=== PATIENT | female | born 2000 | race Caucasian/White ===

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

== ENCOUNTER 2022-04-12 11:19 | Emergency (ER) | payer OTHER, SELFPAY ==
[2022-04-12 11:47] VITALS: BP 100/69; PULSE 76; RESP 20; TEMP 35.9; O2SAT 98
--- NOTE | 2022-04-12 12:41 | ED.GENADULT ---
HPI - General Adult General Chief complaint: Urogenital-Female Stated complaint: Possible UTI Time Seen by Provider: 04/12/22 12:41 Source: patient Mode of arrival: ambulatory Limitations: no limitations History of Present Illness HPI narrative: 22-year-old female patient presents to the [facility] with complaints of urinary symptoms that started yesterday. Patient states she started having burning with urination. Denies any low back pain. Denies any fevers, body aches or chills. Denies any nausea, vomiting or diarrhea. Patient states she was recently started on hormone therapy for a spot on her liver. Patient does have history of stage IV breast cancer with a lumpectomy. Related Data Home Medications Medication Instructions Recorded Confirmed tamoxifen 20 mg tablet 10 mg PO BID 11/20/21 04/12/22 copper 380 square mm intrauterine See Rx Instructions .Route .COMPLEX 04/12/22 04/12/22 device (ParaGard T 380A) escitalopram oxalate 20 mg tablet 20 mg PO DAILY 04/12/22 04/12/22 ribociclib 600 mg/day (200 mg x 3) 1 tablet PO DAILY 04/12/22 04/12/22 and letrozole 2.5 mg tablet (Kisqali Femara Co-Pack) Allergies Allergy/AdvReac Type Severity Reaction Status Date / Time No Known Allergies Allergy Verified 04/12/22 12:20 Review of Systems Review of Systems: CONSTITUTIONAL: Denies fever, chills, or sweats. EYES: Denies visual changes, redness, or discharge. ENT: Denies rhinorrhea, congestion, sore throat, or otalgia. CARDIOVASCULAR: Denies chest pain, palpitations, or edema. RESPIRATORY: Denies cough or dyspnea. GASTROINTESTINAL: Denies abdominal pain, nausea, vomiting, or diarrhea. GENITOURINARY: Positive dysuria denies hematuria. SKIN: Denies rash or itching. MUSCULOSKELETAL: Denies back pain, joint pain, or myalgia. NEUROLOGIC: Denies headache, numbness, or weakness. PSYCHIATRIC: Denies anxiety or depression. [facility] Past Medical History Medical History (Updated 04/12/22 @ 12:57 by TONY Huitron) Acne vulgaris Acute pain of right knee Healthy adult Internal hemorrhoids without complication Malignant neoplasm of upper-inner quadrant of right female breast Menometrorrhagia Secondary malignant neoplasm of bone Tonsil stone Viral URI Surgical History Surgical History History of lumpectomy of right breast Family History Family History Mother Patient's mother is in good health Father Patient's father is in good health Ahuja's sarcoma, Onset Age: 28 Grandparent Malignant neoplasm of prostate Paternal Grandfather Grandparent Breast cancer Paternal Grandmother Social History Social History Smoking status: Never smoker Second hand tobacco smoke exposure: No Alcohol intake: never Substance use: current Other substance usage details: seldom; socially Gender identity (if verbalized by the patient): Female Spiritual care concerns: No Comments At the time of my signature I agree with nursing past medical history, surgical, social, and family history. There is no relevant family history pertinent to the presenting complaint. Exam Narrative: GENERAL: Well-appearing, well-nourished, and in no acute distress. HEAD: Normocephalic, atraumatic. EYES: PERRLA and EOMI. ENT: Nares clear, no rhinorrhea or epistaxis. Mucous membranes moist. NECK: Supple. No lymphadenopathy CHEST: Clear to auscultation. No respiratory distress. HEART: Regular rate and rhythm. No murmur heard. Normal peripheral pulses. ABDOMEN: Soft, nontender, nondistended, normal active bowel sounds. no CVA tenderness on percussion. EXTREMITIES: Normal range of motion. No edema. SKIN: Warm, dry, no rash. NEURO: No focal deficits. Alert and oriented x3. Course Course Level of Care: Express Care Visit Vital Signs Vital signs: Vital Sig
== END 2022-04-12 12:57 | disposition home or self-care (01) ==
PROVIDERS: Emergency Provider Nurse Practitioner Family; PCP Family Medicine
DX: N39.0 Urinary tract infection, site not specified (principal); Z85.3 Personal history of malignant neoplasm of breast; Z85.830 Personal history of malignant neoplasm of bone
CPT/HCPCS: 81003; 87077; 87086; 87186; 99213; G0463

== ENCOUNTER 2022-04-30 15:29 | Outpatient (CLI) | payer BC, SELFPAY ==
[2022-04-30 15:51] LABS: Add Urine Microscopic? NO; Appearance Urine Clear (Clear); Bilirubin Urine Negative (Negative); Blood Urine Negative (Negative); Color Urine Yellow (Yellow); Glucose Urine UA Negative (Negative); Ketones Urine Negative (Negative); Leukocyte Esterase Ur Negative LEU/UL (Negative); Nitrate Urine Negative (Negative); Protein Urine Negative (Negative); Urobilinogen Urine 0.2 mg/dL (<2.0)
== END 2022-04-30 15:30 | disposition home or self-care (01) ==
LOC: ANHLAB 15:31
PROVIDERS: PCP Family Medicine; Visit Provider Physician Assistant
DX: R30.0 Dysuria (principal)
CPT/HCPCS: 81003

== ENCOUNTER 2024-12-11 14:16 | Outpatient (CLI) | payer BC, SELFPAY ==
--- NOTE | ~2024-12-11 | DEXA_ITS ---
Bone Density Report Name: WANDA ROWLAND Age: 24 Sex: Female Ethnicity: White Date of : 2000 Indication: cancer; Referring Provider: DERRICK JONES Study: Bone densitometry was performed. Exam Date: December 11, 2024 Accession number: [id number] Bone Density: Region BMD T-score Z-score Classification AP Spine(L1-L4) 0.906 -1.2 Femoral Neck (Left) 0.904 0.5 Total Hip (Left) 0.990 0.4 Femoral Neck (Right) 0.914 0.6 Total Hip (Right) 1.027 0.7 Total Hip Mean 1.009 0.6 World Health Organization criteria for BMD impression classify patients as: Normal (T-score at or above -1.0), Osteopenia (T-score between -1.0 and -2.5), or Osteoporosis (T-score at or below -2.5). 10-year Fracture Risk: FRAX not reported because: Premenopausal woman Clinical Information Provided by Patient: Has used the following medications: Vitamin D, Calcium Has the following medical conditions: Cancer Patient maximum height was 66.0 No regular weight bearing exercise Drinks caffeinated beverages Onset of menses at age 11 Premenopausal Number of children 0 Missed period for more than 6 months in a row Impression: The patient's bone mass is within expected range for age, gender and ethnicity. Discussion: BONE DENSITY IS WITHIN EXPECTED LIMITS FOR AGE, SEX AND RACE. Bone density is within expected limits for age, sex and race at all sites measured. The patient should follow a healthful lifestyle (good nutrition with adequate calcium and vitamin D, and appropriate weight-bearing exercise). Follow-Up: Consider repeating this study in 5 years or sooner if there is some new clinical indication. Reported by: SANDHYA on 12/11/2024 3:07:00 PM. Reviewed, dictated and finalized at location A.
--- OUTSIDE RECORDS SUMMARY | 2024-12-11 15:19 | XMS_ITS | Clinical Summary ---
Author Organization [facility] [place] Address [address] [place] [address] Phone Care Team Providers Care Fitter Type Bar And Segment Name Role Phone Ysabel Edmond MD Primary Care Provider [phone] Allergies No known active allergies Medications copper (PARAGARD T 380A) 380 square mm IUD 1 Each by Intrauterine route. 04/06/20 22 032 Active prochlorperazin e maleate (COMPAZINE) 10 mg tablet Take 1 Tablet (10 mg) by mouth every 6 hours as needed for Nausea/Emesis. 30 Tablet 4 09/26/19 23 Active kbkap-[id number]-ep a-fish oil-D3 (De3 Dry Eye [employer] Benefits) 800 mg-186.67 mg-8.33 mcg Capsule 10/08/19 23 Active goserelin (Zoladex) 3.6 mg ImplantIndicati ons:Malignant neoplasm of central portion of right female breast, unspecified estrogen receptor status (CMS/HCC),Cance r, metastatic to liver (CMS/HCC),Cance r, metastatic to bone (CMS/HCC) Inject 3.6 mg by subcutaneous injection every 30 days. 1 Each 11 05/04/19 24 Active lidocaine-prilo javier (EMLA) 2.5-2.5 % Cream Apply to affected area see administration instructions. Apply to affected area 1 hour before needle sticks, cover in seran wrap 30 Gram 3 08/04/19 24 Active goserelin (Zoladex) 3.6 mg ImplantIndicati ons:Malignant neoplasm of central portion of right female breast, unspecified estrogen receptor status (CMS/HCC) Inject 3.6 mg by subcutaneous injection see administration instructions. 1 Each 12/08/19 24 Active goserelin (Zoladex) 3.6 mg Implant Inject 3.6 mg by subcutaneous injection one time only for 1 dose. 1 Each 05/08/19 25 Active busPIRone (BUSPAR) 5 mg tablet TAKE 1 TABLET(5MG) BY MOUTH THREE TIMES DAILY 90 Tablet 5 06/27/19 25 Active buPROPion (WELLBUTRIN) 75 mg tablet TAKE 1 TABLET(75 MG) BY MOUTH TWICE DAILY 60 Tablet 4 08/30/19 25 Active levothyroxine 88 mcg tablet Take 1 Tablet (88 mcg) by mouth daily in the morning. 90 Tablet 3 09/08/19 25 Active ribociclib (Kisqali) (200 mg x 3) TabletIndicatio ns:Malignant neoplasm of central portion of right female breast, unspecified estrogen receptor status (CMS/HCC),Cance r, metastatic to bone (CMS/HCC) TAKE 3 TABLETS (600MG) BY MOUTH ONCE DAILY FOR 21 DAYS, THEN 7 DAYS OFF 63 Tablet 6 09/13/19 25 Active amphetamine-dex troamphetamine (Adderall XR) 10 mg Extended Release 24 hour capsuleIndicati ons:Attention deficit disorder (ADD) in adult Take 1 Capsule (10 mg) by mouth daily in the morning. Max Daily Amount: 10 mg 30 Capsule 09/20/19 25 Active letrozole (FEMARA) 2.5 mg tablet Take 1 Tablet (2.5 mg) by mouth daily. 90 Tablet 12/07/19 25 Active letrozole (FEMARA) 2.5 mg tablet Take 1 Tablet (2.5 mg) by mouth daily. 90 Tablet 6 09/07/19 25 025 Discontin ued(Reord er) letrozole (FEMARA) 2.5 mg tablet Take 1 Tablet (2.5 mg) by mouth daily. 90 Tablet 11/28/19 25 025 Discontin ued(Reord er) Active Problems Patient Care Coordination No te Formatting of this note migh t be different from the original. Primary Care: Ysabel Edmond MD Referring Provider: No referring provider defined for this encounter. Other: Dr. Chanelle Chicas MD Problem Noted Date Diagnosed Date Aromatase inhibitor use 11/16/2024 Cancer, metastatic to liver 11/22/2019 Cancer, metastatic to bone 11/22/2019 Malignant neoplasm of centra l portion of right female breast 11/08/2019 Cancer Staging:Clinical stage from 03/14/2020: Unsigned Encounters Date Type Department Care Team Description 12/11/2024 Orders Only [facility] Oncology and [facility] [address] [place] [phone] Freeman Orellana MD Cancer, metastatic to liver (CMS/HCC) 12/06/2024 Orders Only [facility] Oncology [facility] [address] [place] [address] Freeman Orellana MD Osteoporosis, unspecified osteoporosis type, unspecified pathological fracture presence (Primary Dx) 12/06/2024 Refill [facility] Oncology [facility] [address] [place] [address] Freeman Orellana MD 11/29/2024 External Device Data STL ABSTRACTION Provider, Abstract 11/27/2024 Refill [facility] Oncology [facility] [address] [place] [address] Freeman Orellana MD 11/27/2024 Orders Only [facility] Oncology [facility] [address] [place] [address] Freeman Orellana MD Cancer, metastatic to liver (CMS/HCC) 11/16/2024 10:15 AM CDT Office Visit [facility] Breast Surgery [address] [address] Chanelle Chicas MD Malignant neoplasm of central portion of right breast in female, estrogen receptor positive (CMS/HCC) (Primary Dx); Cancer, metastatic to liver (CMS/HCC); Cancer, metastatic to bone (CMS/HCC); Breast cancer screening by mammogram; History of lymph node dissection of axilla; Aromatase inhibitor use 11/15/2024 Telephone [facility] Oncology [facility] [address] [place] [phone] Freeman Orellana MD [place] Bone Density 11/13/2024 External Device Data STL ABSTRACTION Provider, Abstract 11/13/2024 Orders Only [facility] Oncology [facility] [address] [place] [address] Freeman Orellana MD Cancer, metastatic to liver (CMS/HCC) 11/12/2024 External Device Data STL ABSTRACTION Provider, Abstract 11/11/2024 External Device Data STL ABSTRACTION Provider, Abstract 11/10/2024 External Device Data STL ABSTRACTION Provider, Abstract 11/09/2024 Telephone [facility] Oncology [facility] [place] [address] [place] [phone] Viktoria Romero MD medication 11/09/2024 External Device Data STL ABSTRACTION Provider, Abstract 11/08/2024 External Device Data STL ABSTRACTION Provider, Abstract 11/08/2024 External Device Data STL ABSTRACTION Provider, Abstract 11/08/2024 External Device Data STL ABSTRACTION Provider, Abstract 11/07/2024 External Device Data STL ABSTRACTION Provider, Abstract 11/06/2024 Telephone [facility] Oncology [facility] [place] [address] [place] [address] Viktoria Romero MD levothyroxine refill 11/06/2024 External Device Data STL ABSTRACTION Provider, Abstract 11/05/2024 External Device Data STL ABSTRACTION Provider, Abstract 11/04/2024 External Device Data STL ABSTRACTION Provider, Abstract 11/03/2024 External Device Data STL ABSTRACTION Provider, Abstract 11/02/2024 Orders Only [facility] Oncology [facility] [address] [place] [address] Freeman Orellana MD Cancer, metastatic to liver (CMS/HCC) (Primary Dx) 11/02/2024 External Device Data STL ABSTRACTION Provider, Abstract 11/01/2024 External Device Data STL ABSTRACTION Provider, Abstract 10/31/2024 External Device Data STL ABSTRACTION Provider, Abstract 10/30/2024 External Device Data STL ABSTRACTION Provider, Abstract 10/29/2024 External Device Data STL ABSTRACTION Provider, Abstract 10/28/2024 External Device Data STL ABSTRACTION Provider, Abstract 10/27/2024 External Device Data STL ABSTRACTION Provider, Abstract 10/26/2024 External Device Data STL ABSTRACTION Provider, Abstract 10/25/2024 External Device Data STL ABSTRACTION Provider, Abstract 10/24/2024 External Device Data STL ABSTRACTION Provider, Abstract 10/24/2024 External Device Data STL ABSTRACTION Provider, Abstract 10/23/2024 External Device Data STL ABSTRACTION Provider, Abstract 10/22/2024 External Device Data STL ABSTRACTION Provider, Abstract 10/21/2024 External Device Data STL ABSTRACTION Provider, Abstract 10/20/2024 External Device Data STL ABSTRACTION Provider, Abstract 10/19/2024 External Device Data STL ABSTRACTION Provider, Abstract 10/18/2024 External Device Data STL ABSTRACTION Provider, Abstract 10/17/2024 External Device Data STL ABSTRACTION Provider, Abstract 10/16/2024 1:30 PM CDT Office Visit [facility] Oncology and Hematology - [place] [address] [place] [address] Freeman Orellana MD Cancer, metastatic to liver (CMS/HCC) (Primary Dx) 10/16/2024 External Device Data STL ABSTRACTION Provider, Abstract 10/15/2024 External Device Data STL ABSTRACTION Provider, Abstract 10/14/2024 External Device Data STL ABSTRACTION Provider, Abstract 10/13/2024 External Device Data STL ABSTRACTION Provider, Abstract 10/12/2024 External Device Data STL ABSTRACTION Provider, Abstract 10/11/2024 External Device Data STL ABSTRACTION Provider, Abstract 10/10/2024 External Device Data STL ABSTRACTION Provider, Abstract 10/09/2024 9:20 AM CDT - 10/09/2024 11:59 PM CDT Hospital Encounter [place] [address] [place] [address] Discharge Disposition: Home or Self Care 10/09/2024 9:20 AM CDT - 10/09/2024 11:59 PM CDT Hospital Encounter [facility] [address] [place] [phone] Parvin Reece MD Discharge Disposition: Home or Self Care 10/09/2024 8:45 AM CDT Office Visit [facility] Oncology and Hematology [place] [address] [place] [phone] Chanelle Chicas MD [place], Pascale, MD Cancer, metastatic to liver (CMS/HCC) (Primary Dx) 10/09/2024 External Device Data STL ABSTRACTION Provider, Abstract 10/08/2024 External Device Data STL ABSTRACTION Provider, Abstract 10/07/2024 External Device Data STL ABSTRACTION Provider, Abstract 10/06/2024 External Device Data STL ABSTRACTION Provider, Abstract 10/05/2024 External Device Data STL ABSTRACTION Provider, Abstract 10/04/2024 Orders Only [facility] Breast Surgery [address] [facility] [address] [place] [phone] Chanelle Chicas MD History of breast cancer (Primary Dx) 10/04/2024 External Device Data STL ABSTRACTION Provider, Abstract 10/03/2024 External Device Data STL ABSTRACTION Provider, Abstract 10/02/2024 External Device Data STL ABSTRACTION Provider, Abstract 10/01/2024 External Device Data STL ABSTRACTION Provider, Abstract 09/30/2024 External Device Data STL ABSTRACTION Provider, Abstract 09/29/2024 9:16 AM CDT - 09/29/2024 11:59 PM CDT Hospital Encounter [facility] [address] [place] [phone] Parvin Reece MD Discharge Disposition: Home or Self Care 09/29/2024 Results Follow-Up [facility] Oncology and Hematology [facility] [address] [place] [phone] Cristy Esqueda, JUNIOR ACCOUNT EXECUTIVE PET TUMOR OR INFECTION IMG W CT SKB MD 09/29/2024 Telephone [facility] Cancer and Hematology [address] [place] [phone] Mary Lou Malloy, RN Nurse Navigation (Care Coordination) 09/29/2024 External Device Data STL ABSTRACTION Provider, Abstract 09/28/2024 12:51 PM CDT - 09/28/2024 11:59 PM CDT Hospital Encounter [facility] Nuclear Medicine [address] [address] [id number] Parvin Reece MD Discharge Disposition: Home or Self Care 09/28/2024 External Device Data STL ABSTRACTION Provider, Abstract 09/27/2024 External Device Data STL ABSTRACTION Provider, Abstract 09/26/2024 External Device Data STL ABSTRACTION Provider, Abstract 09/25/2024 External Device Data STL ABSTRACTION Provider, Abstract 09/24/2024 External Device Data STL ABSTRACTION Provider, Abstract 09/23/2024 External Device Data STL ABSTRACTION Provider, Abstract 09/22/2024 External Device Data STL ABSTRACTION Provider, Abstract 09/21/2024 External Device Data STL ABSTRACTION Provider, Abstract 09/21/2024 External Device Data STL ABSTRACTION Provider, Abstract 09/20/2024 Orders Only [address] [phone] Parvin Reece MD 09/20/2024 External Device Data STL ABSTRACTION Provider, Abstract 09/19/2024 External Device Data STL ABSTRACTION Provider, Abstract 09/18/2024 Refill [facility] ONCOLOGY AND HEMATOLOGY-[address] [address] Parvin Reece MD Attention deficit disorder (ADD) in adult 09/18/2024 External Device Data STL ABSTRACTION Provider, Abstract 09/17/2024 External Device Data STL ABSTRACTION Provider, Abstract 09/16/2024 External Device Data STL ABSTRACTION Provider, Abstract 09/15/2024 External Device Data STL ABSTRACTION Provider, Abstract 09/15/2024 External Device Data STL ABSTRACTION Provider, Abstract 09/14/2024 External Device Data STL ABSTRACTION Provider, Abstract 09/13/2024 External Device Data STL ABSTRACTION Provider, Abstract 09/13/2024 External Device Data STL ABSTRACTION Provider, Abstract 09/12/2024 External Device Data STL ABSTRACTION Provider, Abstract 09/12/2024 External Device Data STL ABSTRACTION Provider, Abstract 09/11/2024 [facility] [address] [place] [address] Parvin Reece MD Malignant neoplasm of central portion of right female breast, unspecified estrogen receptor status (CMS/HCC); Cancer, metastatic to bone (CMS/HCC) 09/11/2024 External Device Data STL ABSTRACTION Provider, Abstract 09/10/2024 External Device Data STL ABSTRACTION Provider, Abstract from Last 3 Months Family History Medical History Relation Name Comments Cancer Father Chino Ewings sarcoma. Survived Hypertension Father Chino Cancer Maternal Cousin Francesco Wilm's tumor , survived Cancer Paternal Aunt Cancer Paternal Grandfather Hi Diagnos ed in early 2019. Only did radiation therapy. Survived. Lung Cancer Paternal Grandfather Hi Prostate Cancer Paternal Grandfather Hi Surv ived Stroke Paternal Grandfather Hi Breast Cancer Paternal Grandmother Yuliana i n 1989. Twice recurrence. No initial chemotherapy Cancer Paternal Grandmother Yuliana Ovarian Cancer Paternal Grandmother Yuliana My gr eat grandma Ngozi, mother of Yuliana, had ovarian cancer Ovarian Cancer Paternal Great-grandmother Colon Cancer Neg Hx Melanoma Neg Hx Pancreatic Cancer Neg Hx Relation Name Status Comments Father Chino Maternal Cousin Francesco Paternal Aunt Paternal Grandfather Hi Paternal Grandmother Yuliana Paternal Great-grandmother Alive Social History Tobacco Use Types Packs/Day Years Used Date Smoking Tobacco: Never Passive Smoke Exposure: Yes Smokeless Tobacco: Never Tobacco Cessation:Counseling Given: Not Answered Comments:mom smokes, get secondhand from her sometimes Alcohol Use Standard Drinks/Week Comments Yes 0 (1 standard drink = 0.6 oz pure alcohol) about once or twice a month at most, only with family Comments No Sex and Gender Information Value Date Recorded Sex Assigned at Female 03/22/2024 8:27 AM RPG PROGRAMMER Legal Sex Female 8:32 AM CDT Gender Identity Nonbinary/Gender Queer 7:19 PM CDT Sexual Orientation Not on file Last Filed Vital Signs Vital Sign Reading Time Taken Comments Blood Pressure 108/78 11/16/2024 9:52 AM CDT Pulse 100 10/16/2024 1:26 PM CDT Temperature 36.3 C (97.4 F) 10/16/2024 1:26 PM CDT Respiratory Rate 16 10/16/2024 1:26 PM CDT Oxygen Saturation 97% 10/16/2024 1:26 PM CDT Inhaled Oxygen Concentration - - Weight 105.7 kg (233 lb) 11/16/2024 9:52 AM CDT Height 165.1 cm (5' 5) 11/16/2024 9:52 AM CDT Body Mass Index 38.77 11/16/2024 9:52 AM CDT Plan of Treatment Upcoming Encounters Date Type Department Care Team (Late st Contact Info) Description 01/10/2025 2:30 PM CDT Appointment [facility] Bone Density [address] [place] [address] Freeman Orellana MD [address] [facility] [address] [place] [phone] 01/22/2025 2:30 PM CDT Office Visit [facility] Oncology and Hematology - [address] [place] [address] Freeman Orellana MD [address] [phone] 05/21/2025 10:30 AM RPG PROGRAMMER Appointment [facility] [address] [place] [address] [place] [address] [address] [facility] [address] [place] [address] 11/22/2025 8:00 AM CDT Appointment [facility] [address] [place] [phone] [place] [address] [address] [facility] [address] [place] [address] 11/22/2025 8:45 AM CDT Office Visit [facility] Breast Surgery [facility] [address] [facility] [address] [place] [address] [place] [address] [facility] [address] [address] Health Maintenance Due Date Last Done Comments HPV VACCINES (1 - Risk 3-dose series) 01/29/2012 DTAP/TDAP/TD VACCINES (1 - Tdap) 01/29/2020 HEPATITIS B VACCINES (1 of 3 - 19+ 3-dose series) 08/2019 CHLAMYDIA SCREENING (ANNUAL) 11-24 YEARS 11/13/2020 11/14/2019 CERVICAL CANCER SCREENING 2022 HPV/Cotest (21-29) 2022 PAP SMEAR 2022 INFLUENZA VACCINE (#1) 2024 Medical Devices Implanted Type Area Migratory Farm Hand Device Identifier Shelf Expiration Date Model / Serial / Lot Change Management Consultant Clip Surgiclip Ii Sergo 9.75in [id number] - [id number] Implanted:Qty : 1 on 06/19/2020 by Chanelle Chicas MD at [facility] Clip Right: Breast [employer] - COVIDIEN 01/23/2025 [id number] / / [id number] Change Management Consultant Clip Surgiclip Ii Sergo 9.75in 189527 - [id number] Implanted:Qty : 1 on 06/19/2020 by Chanelle Chicas MD at [facility] Clip Right: Axilla [employer] - COVIDIEN 12/24/2024 [id number] / / [id number] Hemostatic Surgicel 2x14in 1950 - [id number] Implanted:Qty : 1 on 06/19/2020 by Chanelle Chicas MD at [facility] Hemostatic Right: Axilla [employer] 12/25/20231950 / / [id number] Port Powerport Clearvue Slim 6fr [id number] - [id number] Implanted:Qty : 1 on 11/17/2019 by Chanelle Chicas MD at [facility] Port Left: Chest CR BARD- ACCESS SYS [id number] 07/24/2020 [id number] / / [id number] Procedures Procedure Name Priority Date/Time Associated Diagnosis Comments CBC WITH DIFFERENTIAL Stat 10/09/2024 9:33 AM CDT Cancer, metastatic to liver (CMS/HCC) COMPREHENSIVE METABOLIC PANEL Routine 10/09/2024 9:25 AM CDT Cancer, metastatic to liver (CMS/HCC) MAMMO 3D BRADEN DIAGNOSTIC BILAT W OR WO CAD Routine 09/29/2024 9:33 AM CDT History of breast cancer Breast cancer screening by mammogram PET TUMOR OR INFECTION IMG W CT SKB MDTH Routine 09/28/2024 2:30 PM CDT Malignant neoplasm of central portion of right female breast, unspecified estrogen receptor status (CMS/HCC) Cancer, metastatic to bone (CMS/HCC) Cancer, metastatic to liver (CMS/HCC) Malignant neoplasm of central portion of right breast in female, estrogen receptor positive (CMS/HCC) GC/CHLAMYDIA, URINE Routine 11/14/2019 2 :43 PM CDT Malignant neoplasm of central portion of right female breast, unspecified estrogen receptor status (CMS/HCC) from Last 3 Months or Most Recently Relevant to Health Maintenance Results * (ABNORMAL) CBC WITH DIFFERENTIAL (10/09/2024 9:33 AM CDT) WBC 4.0 4.0 - 9.8 K/uL 10/09/2024 9:35 AM CDT [facility] [address] RBC 3.66(L) 3.90 - 4.90 M/uL 10/09/2024 9:35 AM CDT [facility] [address] HEMOGLOBIN 12.0 11.8 - 14.8 g/dL 10/09/2024 9:35 AM CDT [facility] [address] HEMATOCRIT 34.1(L) 35.5 - 44.0 % 10/09/2024 9:35 AM CDT [facility] [address] MCV 93.2 82.0 - 99.0 fL 10/09/2024 9:35 AM CDT [facility] [address] MCH 32.8(H) 27.2 - 32.6 pg 10/09/2024 9:35 AM CDT [facility] [address] MCHC 35.2 31.5 - 35.5 g/dL 10/09/2024 9:35 AM CDT [facility] [address] RDW 13.5 11.5 - 14.5 % 10/09/2024 9:35 AM CDT [facility] [address] RDW-STDEV 45.1 37.1 - 48.7 fL 10/09/2024 9:35 AM CDT [facility] [address] PLATELETS 174 140 - 350 K/uL 10/09/2024 9:35 AM CDT [facility] [address] MPV 9.6 9.3 - 12.4 fL 10/09/2024 9:35 AM CDT [facility] [address] NEUTROPHILS 50 % 10/09/2024 9:35 AM CDT [facility] [address] LYMPHOCYTES 38 % 10/09/2024 9:35 AM CDT [facility] [address] MONOCYTES 10 % 10/09/2024 9:35 AM CDT [facility] [address] EOSINOPHILS 1 % 10/09/2024 9:35 AM CDT [facility] [address] BASOPHILS 1 % 10/09/2024 9:35 AM CDT [facility] [address] IMMATURE GRANULOCYTES 1 % 10/09/2024 9:35 AM CDT [facility] [address] Comment:IG (Immature Granulo cyte) count includes Metamyelocytes, Myelocytes, and Promyelocytes NEUTROPHIL ABSOLUTE 1.98 1.90 - 7.00 K/uL 10/09/2024 9:35 AM CDT [facility] [address] LYMPHOCYTE ABSOLUTE 1.49 0.70 - 4.50 K/uL 10/09/2024 9:35 AM CDT [facility] [address] MONOCYTE ABSOLUTE 0.39 0.10 - 1.30 K/uL 10/09/2024 9:35 AM CDT [facility] [address] EOSINOPHIL ABSOLUTE 0.05 0.00 - 0.70 K/uL 10/09/2024 9:35 AM CDT [facility] [address] BASOPHILS ABSOLUTE 0.02 0.00 - 0.20 K/uL 10/09/2024 9:35 AM CDT [facility] [address] IMMATURE GRANULOCYTES ABSOLUTE 0.02 0.00 - 0.03 K/uL 10/09/2024 9:35 AM CDT [facility] [address] Blood 10/09/2024 9:33 AM CDT 10/09/2024 9:33 AM CDT us Viktoria Romero MD HEMATOLOGY ORDERABLES Final Res ult [facility] [address] [facility]#[id number] [place] [address] * COMPREHENSIVE METABOLIC PANEL (10/09/2024 9:25 AM CDT) [facility] GLUCOSE 97 65 - 99 mg/dL Qio jose Barrera Comment: Fasting reference interval BUN 16 7 - 25 mg/dL Edvivo jose Barrera CREATININE 0.80 0.50 - 0.96 mg/dL EdvivoS jose Barrera GFR 106 > OR = 60 mL/min/1. 73m2 Qio jose Barrera BUN/CREAT RATIO SEE NOTE: 6 (calc) [employer]-S jose Barrera Comment: Not Reported: BUN and Creatinine are within reference range. SODIUM 136 135 - 146 mmol/L [employer]-S jose Barrera POTASSIUM 4.5 3.5 - 5.3 mmol/L EdvivoS jose Barrera CHLORIDE 102 98 - 110 mmol/L [employer]S jose Barrera CO2 26 20 - 32 mmol/L [employer]-S jose Barrera CALCIUM 9.2 8.6 - 10.2 mg/dL [employer]S jose Barrera TOTAL PROTEIN 7.3 6.1 - 8.1 g/dL EdvivoS jose Barrera ALBUMIN 4.3 3.6 - 5.1 g/dL EdvivoS jose Barrera GLOBULIN 3.0 1.9 - 3.7 g/dL (calc) [employer] jose Barrera ALBUMIN/GLOBULIN RATIO 1.4 1.0 - 2.5 (calc) [employer] jose Barrera BILIRUBIN TOTAL 0.3 0.2 - 1.2 mg/dL PhotoRocketJenae Barrera ALKALINE PHOSPHATASE 105 31 - 125 U/L PhotoRocketJenae Barrera AST 14 10 - 30 U/L PhotoRocketJenae Barrera ALT 14 6 - 29 U/L [employer] jose Barrera Comment: Test Performed at: [place] [address] [address] [id number] Jackie-Angelina Thi Vo Blood 10/09/2024 9:25 AM CDT 10/10/2024 3:12 AM CDT us Viktoria Romero MD CHEMISTRY ORDERABLES Final Resu lt [facility] [phone] [place] [address] [id number] * MAMMO 3D BRADEN DIAGNOSTIC BILAT W OR WO CAD (09/29/2024 9:33 AM CDT) Anatomical Region Laterality Modality Breast Bilateral Mammography 09/29/2024 9:34 AM CDT Impressions 09/29/2024 9:41 AM CDT IMPRESSION: No mammographic evidence of malignancy. RECOMMENDATIONS: Routine mammogram in one year. DICTATION LOCATION: [address] Narrative 09/29/2024 9:41 AM CDT EXAM: BILATERAL DIAGNOSTIC FULL-FIELD DIGITAL MAMMOGRAPHY WITH CAD WITH 3D TOMOSYNTHESIS DATE: 09/29/2024 9:33 AM HISTORY: Personal history of right breast cancer TECHNIQUE: Mediolateral oblique, mediolateral and craniocaudal views of both breasts were performed using full field digital mammography. Low-dose full-field digital breast tomosynthesis examination was performed with 2D and 3D acquisitions. Examination is read in conjunction with computer aided detection. COMPARISON: 2023, 2022, 2020 BREAST COMPOSITION: The breasts are heterogeneously dense, which may obscure small masses. FINDINGS: Postoperative changes again seen in the right breast and axilla. Site marker is seen in the right breast. No new suspicious mass, microcalcifications or architectural distortion in either breast. OVERALL FINAL ASSESSMENT: BI-RADS CATEGORY 2: Benign findings Chanelle Chicas MD MAMMO ORDERABLES Final R esult * PET TUMOR OR INFECTION IMG W CT SKB MD (09/28/2024 2:30 PM CDT) Anatomical Region Laterality Modality Positron Emissio n Tomography (PET) 09/28/2024 2:31 PM CDT Impressions 09/28/2024 2:49 PM CDT IMPRESSION: Stable scan. No evidence for active sites of skeletal metastatic disease. L2 vertebra remains FDG negative. Dictated by Dr. Colton Mo MD DICTATION LOCATION: Narrative 09/28/2024 2:49 PM CDT PET/CT IMAGING WITH HARDWARE FUSION Subsequent treatment strategy DATE: 09/28/2024 2:30 PM PRIOR EXAM: PET CT exam 04/10/2024. HISTORY: Restaging of metastatic breast cancer with history of skeletal and hepatic metastatic disease. CA 15-3 and CEA levels remain normal. PROCEDURE: Radiopharmaceutical: 18-F FDG Injected activity: 10.37 mCi Injection site: Left antecubital vein Uptake time: 54 minutes Blood glucose: 91 mg/dL. CT scan type: Mid brain through mid thigh. CT technique: Noncontrast CT for attenuation correction and anatomic localization. Axial, sagittal, coronal and MIP images reviewed. Maximal SUVs have units of MBq/mL. Aortic blood pool: SUVmax: 2.4 Hepatic parenchyma: SUVmax: 3.3 Scan quality: Excellent. FINDINGS: Significant PET/CT findings: Surgical clips at the lateral margin of the right proximal stent in the right axilla. No sites of pathologic adenopathy. No pulmonary, hepatic, adrenal or ovarian sites of metastatic disease. No PET avid skeletal metastases with absent FDG uptake in the sclerotic L2 vertebra. Incidental PET/CT findings: Expected patterns of PET activity within brain, extraocular muscles, tonsils, salivary glands, heart and excreted by the urinary tract. Persistent diffuse increased FDG uptake within a large thyroid suggestive of Francine's thyroiditis. Left-sided Port-A-Cath with the catheter tip in the low SVC. The lung ly are normal. No coronary artery calcifications. The liver, spleen, pancreas, adrenal glands and kidneys are normal. IUD present within the uterus. Procedure Note Colton Mo MD - 09/28/2024 PET/CT IMAGING WITH HARDWARE FUSION Subsequent treatment strategy DATE: 09/28/2024 2:30 PM PRIOR EXAM: PET CT exam 04/10/2024. HISTORY: Restaging of metastatic breast cancer with history of skeletal and hepatic metastatic disease. CA 15-3 and CEA levels remain normal. PROCEDURE: Radiopharmaceutical: 18-F FDG Injected activity: 10.37 mCi Injection site: Left antecubital vein Uptake time: 54 minutes Blood glucose: 91 mg/dL. CT scan type: Mid brain through mid thigh. CT technique: Noncontrast CT for attenuation correction and anatomic localization. Axial, sagittal, coronal and MIP images reviewed. Maximal SUVs have units of MBq/mL. Aortic blood pool: SUVmax: 2.4 Hepatic parenchyma: SUVmax: 3.3 Scan quality: Excellent. FINDINGS: Significant PET/CT findings: Surgical clips at the lateral margin of the right proximal stent in the right axilla. No sites of pathologic adenopathy. No pulmonary, hepatic, adrenal or ovarian sites of metastatic disease. No PET avid skeletal metastases with absent FDG uptake in the sclerotic L2 vertebra. Incidental PET/CT findings: Expected patterns of PET activity within brain, extraocular muscles, tonsils, salivary glands, heart and excreted by the urinary tract. Persistent diffuse increased FDG uptake within a large thyroid suggestive of Francine's thyroiditis. Left-sided Port-A-Cath with the catheter tip in the low SVC. The lung ly are normal. No coronary artery calcifications. The liver, spleen, pancreas, adrenal glands and kidneys are normal. IUD present within the uterus. IMPRESSION: Stable scan. No evidence for active sites of skeletal metastatic disease. L2 vertebra remains FDG negative. Dictated by Dr. Colton Mo MD DICTATION LOCATION: 1 Parvin Reece MD PE ORDERABLES Final Result * GC/CHLAMYDIA, URINE (11/14/2019 2:43 PM CDT) SOURCE Urine 11/17/2019 1:02 AM CDT [facility] RNA Negative Negative 11/17/2019 1:02 AM CDT [facility] Comment: ADDITIONAL INFORMATION This report is intended for use in clinical monitoring and management of patients. It is not intended for use in medical-legal applications. SOURCE Urine 11/17/2019 1:02 AM CDT [facility] NEISSERIA GONORRHOEAE RNA Negative Negative 11/17/2019 1:02 AM CDT [facility] Comment: ADDITIONAL INFORMATION This report is intended for use in clinical monitoring and management of patients. It is not intended for use in medical-legal applications. Test Performed by: [place] [address] Retail Event Assistant: Rodo Oakley M.D. Ph.D.; CLIA# [id number] Urine URINE SPECIMEN / Unknown Collection / Unknown 11/14/2019 2:43 PM CDT 11/14/2019 2:43 PM CDT Chanelle Chicas MD URINE ORDERABLES COM [facility] al Result [facility] from Last 3 Months or Most Recently Relevant to Health Maintenance [place] [address] [place] [address] BLUE ACCESS CHOICE RX [employer] RX Member Subscriber Plan / Payer (Ef fective 2022-Present) Name:Wanda Molina Relation to Subscriber:Spouse Payer ID:Not on file Group ID:[id number] Type:RX Commercial Address: [address] BCBS BLUE ACCESS CHOICE Advance Directives For more information, please contact: [phone] * Full Code (Latest Code Status on File) Date Activated Date Inactivated Comments 11/17/2019 12:19 PM 11/17/2019 7:42 PM Care Teams Fitter Type Bar And Segment Relationship Specialty Start Date End Date Ysabel Edmond MD [address] [place] [id number] PCP - General Family Practice 11/08/19
--- OUTSIDE RECORDS SUMMARY | 2024-12-11 15:19 | XMS_ITS | Clinical Summary ---
Author Organization [facility] Address [facility] [place] [address] Care Team Providers Care Religious Educator Name Role Phone Ysabel Edmond MD Primary Care Provider [phone] Allergies No known active allergies Medications lidocaine-prilo javier cream Apply topically 2 Active green tea leaf extract capsule Take by mouth Active selenium 200 mcg tablet Take by mouth Activ e goserelin acetate (ZOLADEX SUBQ) Inject under the skin Active sertraline (ZOLOFT) 50 mg tablet Take 50 mg by mouth nightly at bedtime 2 Active ribociclib-letr ozole 600 mg/day(200 mg x 3)-2.5 mg tablet Take 600 mg by mouth daily 2 Active Hospital, Clinic, or Other Facility Administered Medication Ordered Dose Route Frequency Start Date End Date Status copper (PARAGARD) 380 square mm IUD 1 eachIndications:Pre gnancy Contraception 1 each intrauterine Continuous (implanted device) 04/06/2022 2 Active Active Problems No known active problems Surgical History Surgery Date Site/Laterality Comments WISDOM TOOTH EXTRACTION 04/26/2020 - 04/25/2021 BREAST LUMPECTOMY 04/26/2020 - 04/25/2021 OTHER SURGICAL HISTORY 04/26/2019 - 04/25/2020 Bard power port placement surgery OTHER SURGICAL HISTORY 04/26/2019 - 04/25/2020 Fertility preservation surgery Medical History Medical History Date Comments Cancer (HCC) Breast cancer (HCC) Anxiety Family History Relation Name Status Comments Father Alive Mother Alive Social History Tobacco Use Types Packs/Day Years Used Date Smoking Tobacco: Never Smokeless Tobacco: Never Tobacco Cessation:Counseling Given: Not Answered AUDIT-C Answer Date Recorded Q1: How often do you have a drink containing alc ohol? 2-4 times a month 04/06/2022 Q2: How many drinks containi ng alcohol do you have on a typical day when you are drinking? 1 or 2 04/06/2022 Frequency of Binge Drinking Not on file 03/26 Personal Safety Answer Date Recorded Getting School Help Needed Not on file 04/08 Comments No Sex and Gender Information Value Date Recorded Sex Assigned at Not on file Legal Sex Female 2:33 AM RADIO DIRECTOR Gender Identity Female 04/06/2022 1:33 PM RADIO DIRECTOR Sexual Orientation Not on file Occupation Industry Job Start Date Job End Date STUDENT Not on file Not on file Not on file Obstetrics History Para Term AB IAB SAB Ectopic Multiple Livin g Live Births 0 0 0 0 0 0 0 0 0 0 0 Last Filed Vital Signs Vital Sign Reading Time Taken Comments Blood Pressure 114/74 04/06/2022 2:55 PM RADIO DIRECTOR Pulse - - Temperature - - Respiratory Rate - - Oxygen Saturation - - Inhaled Oxygen Concentration - - Weight 79.5 kg (175 lb 3.2 oz) 04/06/2022 2:55 P M RADIO DIRECTOR Height 165.1 cm (5' 5) 04/06/2022 2:55 PM RADIO DIRECTOR Body Mass Index 29.15 04/06/2022 2:55 PM RADIO DIRECTOR Plan of Treatment Health Maintenance Due Date Last Done Comments Chlamydia and Gonorrhea (GC/ CT) Screening 2001 Depression Screening 2001 Hepatitis C Screening 2001 DTaP/Tdap/Td Vaccine (1 - Tdap) 01/29/2012 Varicella Vaccines (1 of 2 - 13+ 2-dose series) 2014 HPV Vaccines (2 - Risk 3-dos e series) 12/24/2015 11/26/2015 Meningococcal B Vaccine (1 o f 2 - Standard) 2017 Hepatitis B Screening 2019 Pneumococcal vaccine <65 (1 of 2 - PCV) 01/29/2020 Zoster Vaccine (1 of 2) 01/29/2020 Cervical Cancer Screening 03/05/2023 03/05/2022 Regular Well Visit/Exam 18-64 03/05/2023 03/05/2022 Covid-19 Vaccine (5 2023-2 5 season) 2023 02/26/2022, 03/22/2021, 07/21/2020, Additional history exists Influenza Vaccine (#1) 2024 02/26/2022 Procedures Procedure Name Priority Date/Time Associated Diagnosis Comments PAP WITH REFLEX TO HIGH RISK HPV Routine 03/05/2022 4:25 PM RADIO DIRECTOR Well woman exam from Last 3 Months or Most Recently Relevant to Health Maintenance Results * Pap with reflex to High Risk HPV (03/05/2022 4:25 PM RADIO DIRECTOR) CLINICAL INFORMATION: BREAST CANCER [facility] LMP 12/26/21 [facility] Previous Pap NONE GIVEN [facility] Prev. Bx NONE GIVEN [facility] SOURCE: Cervix, Endocervix [facility] Pap, specimen adequacy Satisfactory for evaluation. Endocervical/neely sformation zone component present. Partially obscuring inflammation [facility] HPV interp Negative for intraepithelial lesion or malignancy. [facility] COMMENTS This Pap test has been evaluated with computer assisted technology. [facility] Spring Up Supervisor OWEN, CT(ASCP) CT Screening location: [facility] Administration [address] [place] [address] [facility] Comment [facility] Comment: EXPLANATORY NOTE: The Pap is a screening test for cervical cancer. It is not a diagnostic test and is subject to false negative and false positive results. It is most reliable when a satisfactory sample, regularly obtained, is submitted with relevant clinical findings and history, and when the Pap result is evaluated along with historic and current clinical information. Thin prep 03/05/2022 4:25 PM RADIO DIRECTOR 03/06/2022 12:46 AM RADIO DIRECTOR Chantel Ibanez NP LAB CYTOLOGY ORDERAB LES Final Result [facility] [address] [address] [phone] from Last 3 Months or Most Recently Relevant to Health Maintenance Insurance [employer] OPEN ACCESS Care Teams Religious Educator Relationship Specialty Start Date End Date Ysabel Edmond MD PCP - General Family Medicine 11/24/21
--- OUTSIDE RECORDS SUMMARY | 2024-12-11 15:19 | XMS_ITS | Encounter Summary ---
Author Organization [facility] Address [address] [place] [address] Care Team Providers Care Rope Rider Name Role Phone Ysabel Edmond MD Primary Care Provider [phone] Encounter Details Date Type Department Care Team (Late Contact Info) Description 12/11/2024 Orders Only [facility] Oncology and Hematology - Shawn [address] [facility] [address] [place] [address] Freeman Orellana MD [address] [facility] [address] [place] [address] Cancer, metastatic to liver (CMS/HCC) Social History Tobacco Use Types Packs/Day Years Used Date Smoking Tobacco: Never Passive Smoke Exposure: Yes Smokeless Tobacco: Never Comments:mom smokes, get sec ondhand from her sometimes Alcohol Use Standard Drinks/Week Comments Yes 0 (1 standard drink = 0.6 oz pure alcohol) about once or twice a month at most, only with family Comments No Sex and Gender Information Value Date Recorded Sex Assigned at Female 03/22/2024 8:27 AM [employer] Legal Sex Female 8:32 AM CDT Gender Identity Nonbinary/Gender Queer 7:19 PM CDT Sexual Orientation Not on file documented as of this encounter Plan of Treatment Upcoming Encounters Date Type Department Care Team (Late Contact Info) Description 01/10/2025 2:30 PM CDT Appointment [facility] [address] [place] [address] Freeman Orellana MD [address] [address] 01/22/2025 2:30 PM CDT Office Visit [facility] Oncology and Hematology - Shawn [address] [facility] [address] [place] [address] Freeman Orellana MD [address] [address] 05/21/2025 10:30 AM [employer] Appointment [facility] [address] [place] [address] [place] [address] [address] [address] 11/22/2025 8:00 AM CDT Appointment [facility] [address] [place] [address] [place] [address] [address] [address] 11/22/2025 8:45 AM CDT Office Visit [facility] Breast Surgery [address] [facility] [address] [place] [address] [place] [address] [facility] [address] [place] [address] documented as of this encounter Visit Diagnoses Diagnosis Cancer, metastatic to liver (CMS/HCC) Secondary malignant neoplasm of liver documented in this encounter Care Teams Rope Rider Relationship Specialty [place] [address] [place] [phone] PCP - General Family Practice 11/08/19 documented as of this encounter
--- OUTSIDE RECORDS SUMMARY | 2024-12-11 15:19 | XMS_ITS | Encounter Summary ---
Author Organization [facility] Address [address] [place] [address] Care Team Providers Care Assembler For Puller Over Machine Name Role Phone Ysabel Edmond MD Primary Care Provider [phone] Encounter Details Date Type Department Care Team ([facility] Contact Info) Description 07/02/2020 Chart Note [facility] Radiation Therapy [address] [place] [phone] [place] [address] [place] [address] Social History Tobacco Use Types Packs/Day Years Used Date Smoking Tobacco: Never Smokeless Tobacco: Never Alcohol Use Standard Drinks/Week Comments Never 0 (1 standard drink = 0.6 oz pur e alcohol) Comments No Sex and Gender Information Value Date Recorded Sex Assigned at Female 03/22/2024 8:27 AM MENTAL HEALTH THERAPIST Legal Sex Female 8:32 AM CDT Gender Identity Nonbinary/Gender Queer 7:19 PM CDT Sexual Orientation Not on file COVID-19 Exposure Response Date Recorded In the last month, have you been in contact with someone who was confirmed or suspected to have Coronavirus / COVID-19? No / Unsure 07/04/2020 8:49 AM MENTAL HEALTH THERAPIST documented as of this encounter Plan of Treatment Upcoming Encounters Date Type Department Care Team (Late Contact Info) Description 01/10/2025 2:30 PM CDT Appointment [facility] Bone Density Carl [address] [place] [phone] Freeman Orellana MD [address] [phone] 01/22/2025 2:30 PM CDT Office Visit [facility] Oncology and Hematology - Shawn [address] [facility] [address] [place] [phone] Freeman Orellana MD [address] [address] 05/21/2025 10:30 AM MENTAL HEALTH THERAPIST Appointment [facility] [address] [address] [place] [address] [place] [address] [address] 11/22/2025 8:00 AM CDT Appointment [facility] [address] [place] [address] [place] [address] [address] 11/22/2025 8:45 AM CDT Office Visit [facility] Breast Surgery [address] [address] [facility] [address] [place] [address] [place] [address] [facility] [address] [place] [address] documented as of this encounter Visit Diagnoses Not on filedocumented in this encounter Care Teams Assembler For Puller Over Machine Relationship Specialty Start Date End Date Ysabel Edmond MD [address] [place] [phone] PCP - General Family Practice 11/08/19 documented as of this encounter
--- OUTSIDE RECORDS SUMMARY | 2024-12-11 15:19 | XMS_ITS ---
Author Organization [facility] Address [address] [place] [address] Phone Care Team Providers Care Social Science Manager Name Role Phone Ysabel Edmond MD Primary Care Provider [phone] Active Problems Patient Care Coordination No te [...] 11/08/2019 Cancer Staging:Clinical stage from 03/14/2020: Unsigned Current Treatment and Therapy Plans OP FLUSH PROTOCOL CENTRAL LINES (PICC, CVC, IMPLANTED PORT) & OP ONC GOSERELIN (ZOLADEX) 3.6 MGSUBCUT EVERY 28 DAYS* Plan Start Date:09/13/2020 Plan Provider:Parivn Reece MD Linked Problems Malignant neoplasm of centra l portion of right breast in female, estrogen receptor positive (CMS/HCC) Treatment Medications No medications scheduled. Past Treatment and Therapy Plans ONCOLOGY THERAPY PLAN Plan Name Start Date Discontinue Date Treatment Medications Discontinue Reason Plan Provider OP ONC LEUPROLIDE (LUPRON) 3.75 MG EVERY 4 WEEKS - FOR OVARIAN OBLATION IN PRE-MENOPAUSAL WOMEN WITH BREAST CANCER & ... 12/07/2019 02/22/2020 No medications scheduled. Other Luedke, Parvin L, MD ONCOLOGY TREATMENT Plan Name Start Date Discontinue Date Treatment Medications Discontinue Reason Plan Provider Cycles OP ONC BREAST FEC EVERY 21 DAYS X 3 FOLLOWED BY DOCETAXEL EVERY 3 WEEKS X 3 11/29/2019 09/26/2020 cycloPHOSphamide (CYTOXAN) IVPBDOCEtaxel (TAXOTERE) IVPBepiRUBicin (ELLENCE) 50 mg/25 mLfluoruracil (5-FU) injectable syringe Therapy Complete Parvin Reece MD 9 of 9 cycles started Lifetime Dose Tracking * Chemical Lifetime Dose Automatic Entry Manual Entr y epirubicin 296.859 mg/m2 (564 mg) 296.859 mg/m2 (564 mg) 0 mg/m2 (0 mg) Effective Dose 24.6 mSv 24.6 mSv 0 mSv Total DLP 1,222 DLP 1,222 DLP 0 DLP CTDIvol Max 29.1 mGy 29.1 mGy 0 mGy CTDIvol Min 16 mGy 16 mGy 0 mGy
== END 2024-12-11 14:17 | disposition home or self-care (01) ==
PROVIDERS: PCP Family Medicine; Visit Provider Internal Medicine Hematology & Oncology
DX: M81.0 Age-related osteoporosis without current pathological fracture (principal)
CPT/HCPCS: 77080